=== PATIENT | female | born 1945 | race Caucasian/White ===

== ENCOUNTER 2016-10-23 17:47 | Emergency (ER) | payer MEDICARE, OTHER ==
--- NOTE | ~2016-10-23 | CR72 ---
[facility] A Service of [facility] & [facility] RADIOLOGY TEXT RESULTS PATIENT: HAYLIE SWENSON LOCATION: [facility] : 45 UNIT #: [id number] AGE: [address]: Vikram Vasquez MD SEX: F ORDER DR: [id number] [facility] [address] [place], [place] [address] [id number] E MR#: [id number] Acc #: [id number] NAME: HAYLIE SWENSON. : 1945 SEX: F STUDY DATE/TIME: 10/23/2016 17:31 UNIT: [facility] ROOM: STUDY DESCRIPTION: CR Chest Single View Portable Attending Physician: Vikram Vasquez M.D. Ordering Physician: Vikram Vasquez M.D. Primary Care Physician: Grover Diaz M.D. MEDICAL IMAGING REPORT This report is preliminary unless electronic signature is present EXAM Portable chest HISTORY Chest pain today. FINDINGS Mild hyperinflation of both lungs. Cardiac size and pulmonary vascularity are normal. Stable mild interstitial prominence in both lungs compared to 09/05/2016. No pulmonary consolidation or effusion. Mild left lower thoracic curve. IMPRESSION No acute findings Dictated by... Bijan Banda M.D. THIS IS AN ELECTRONICALLY VERIFIED REPORT Bijan Banda M.D. at 10/24/2016 1:25 PM DFL/rnr TD: 10/24/2016 02:41 JOB #: [id number] MEDICAL IMAGING REPORT Page 1 of 1 COPY
--- NOTE | ~2016-10-23 | EKG ---
PATIENT: HAYLIE SWENSON UNIT #: [id number] Ventricular Rate: 68 BPM Atrial Rate: 68 BPM P-R Interval: 144 ms QRS Duration: 86 ms Q-T Interval: 388 ms QTC Calculation(Bezet): 412 ms P [place]: 72 degrees Calculated R [place]: 3 degrees Calculated T [place]: 70 degrees Diagnosis Line: Normal sinus rhythm Diagnosis Line: Nonspecific ST abnormality Diagnosis Line: Borderline ECG Diagnosis Line: When compared with ECG of 05-SEP-2016 15:39, Diagnosis Line: Premature ventricular complexes are no longer Diagnosis Line: Present Diagnosis Line: Confirmed by RICKY MARTINEZ MD ([id number]) on 10/23/2016 Diagnosis Line: 4:44:07 PM INTERPRETING MD: JUAN ESCAMILLA
[2016-10-23 15:09] LABS: BASOPHIL# 0.2 X10e3 (0-0.3); BASOPHIL% 1.2 % (0-2.5); EOSINOPHIL# 0.2 X10e3 (0-0.7); EOSINOPHIL% 1.7 % (0.0-7.0); HEMATOCRIT 35.1 % (35.0-45.0); HEMOGLOBIN 11.6 gm/dL (12.0-16.0); LYMPHOCYTE# 1.6 X10e3 (1.0-3.5); LYMPHOCYTE% 11.9 % (17.0-45.0); MEAN CELL VOLUME 96.1 FL (83-96); MEAN CORPUSCULAR HEMOGLOBIN 31.8 PG (28-34); MONOCYTE# 1.1 X10e3 (0-1.0); MONOCYTE% 8.4 % (3.0-12.0); NEUTROPHIL# 10.1 X10e3 (1.5-7.1); NEUTROPHIL% 76.8 % (40-75); PLATELET COUNT 241 X10e3 (140-420); RED BLOOD COUNT 3.65 X10e (3.90-5.30); RED CELL DISTRIBUTION WIDTH 14.6 % (11.0-15.5); WHITE BLOOD COUNT 13.2 X10e3 (4.0-10.5)
[2016-10-23 15:10] LABS: DIFF IND NO
[2016-10-23 15:19] LABS: POC - CKMB <1.0 ng/mL (0.0-7.9); POC - TROPONIN <0.05 ng/mL (<=0.05)
[2016-10-23 15:34] LABS: ALBUMIN SERUM 3.7 g/dL (3.5-5.0); BILIRUBIN, DIRECT 0.2 mg/dL (0.0-0.2); BILIRUBIN,INDIRECT 0.7 mg/dL (0.0-0.9); BILIRUBIN,TOTAL 0.9 mg/dL (0.2-2.0); CALCIUM SERUM 8.6 mg/dL (8.4-10.2); GLOM FILT RATE Estimated 56.7 mL/min (>60); POTASSIUM 3.4 mmol/L (3.5-5.1); PROTEIN TOTAL SERUM 6.3 g/dL (6.0-8.3)
[~2016-10-23 17:47] MED LIST: ACETAMINOPHEN PO; ADVAIR 250-501 EAC1 INH; ALBUTEROL 0.5ML INH; ALBUTEROL17 GM INH; ALPRAZOLAM0.5 MG PO; AZITHROMYCIN250 MG PO; BUMEX1 MG PO; BUMEX2 MG PO; COMBIVENT U/D3 M1 INH; COMBIVENT U/D3 M4 INH; COREG3.125 M1 PO; COREG3.125 MG PO; COUMADIN3 MG PO; COUMADIN5 MG PO; CYMBALTA30 M1 PO; DULOXETINE HCL60 MG PO; ENTRESTO 24 MG1 EACH PO; FOLIC ACID PO; HALDOL0.5 MG PO; HYDROCODON-ACE1 EAC9 PO; IRON325 ( 651 PO; K-DUR20 ME1 PO; KEFLEX500 M1 PO; LANOXIN125 MCG PO; LEVAQUIN750 M1 PO; LEXAPRO PO; LEXAPRO20 MG PO; NEURONTIN300 MG PO; NITROGLYGERIN0.4 MG SL; NITROSTAT0.4 MG SL; NYSTATIN5 ML PO; POTASSIUM CHLO20 ME1 PO; PREDNISOLONE5 MG PO; PREDNISONE10 MG/DOSE PO; PRILOSEC PO; PRO-AMATINE5 M1 PO; PROAIR HFA8.5 GM INH; REQUIP1 MG PO; REQUIP2 MG PO; SPIRIVA18 MCG INH; VIT B-12 PO; VITAMIN D400 UNI2 PO; XANAX0.5 M1 PO; XANAX1 MG PO
[2016-10-23 18:16] LABS: POC - CKMB <1.0 ng/mL (0.0-7.9); POC - TROPONIN <0.05 ng/mL (<=0.05)
== END 2016-10-23 18:40 | disposition home or self-care (01) ==
LOC: CED 17:47
PROVIDERS: Emergency Medicine
DX: R07.2 Precordial pain (principal); F17.200 Nicotine dependence, unspecified, uncomplicated; K21.9 Gastro-esophageal reflux disease without esophagitis; J45.909 Unspecified asthma, uncomplicated; J44.9 Chronic obstructive pulmonary disease, unspecified; F41.9 Anxiety disorder, unspecified; Z88.0 Allergy status to penicillin; Z88.2 Allergy status to sulfonamides; Z88.5 Allergy status to narcotic agent
CPT/HCPCS: 36415; 71010; 80048; 80076; 82553; 84484; 85025; 93005; 99284

== ENCOUNTER → 2016-11-17 | Outpatient (CLI) | payer MEDICARE, OTHER ==
--- NOTE | ~2016-11-17 | CT57 ---
[facility] A Service of [facility] & [facility] RADIOLOGY TEXT RESULTS PATIENT: HAYLIE SWENSON LOCATION: [facility] : 45 UNIT #: [id number] AGE: [address]: Eladio Denise MD SEX: F ORDER DR: [id number] [facility] [place] [facility]. [place], [place] [address] [id number] O MR#: [id number] Acc #: [id number] NAME: HAYLIE SWENSON : 1945 SEX: F STUDY DATE/TIME: 11/18/2016 UNIT: [facility] ROOM: STUDY DESCRIPTION: CT Chest Wo Cont Attending Physician: Eladio Denise M.D. Referring Physician: Eladio Denise M.D. Ordering Physician: Eladio Denise M.D. Primary Care Physician: Grover Diaz M.D. MEDICAL IMAGING REPORT This report is preliminary unless electronic signature is present EXAM CT chest without contrast 11/17/2016 1334 hours. HISTORY 71-year-old woman with history of cardiac disease complaining of persistent wheezing and cough for 10 years. History of COPD. COMPARISON Chest CT 08/31/2016 TECHNIQUE Helical noncontrasted images were obtained from the thoracic inlet through the adrenal glands. Sagittal and coronal reconstructions were performed. Total exam DLP 495 mGy-cm. This CT exam was performed with one or more of the following radiation dose reduction techniques: automatic exposure control, adjustment of mA and/or kV according to patient size, and iterative reconstruction. FINDINGS Images through the thoracic inlet demonstrate no thyroid mass or enlargement. There is no supraclavicular adenopathy. Images through the chest demonstrate normal caliber aorta with mild atherosclerotic change. Cardiac chambers and pericardium are normal. The esophagus is remarkable for a moderate sized hiatal hernia which is unchanged. The lungs demonstrate underlying emphysematous change with minimal apical scarring bilaterally. Previous patchy densities in the right middle lobe and right lower lobe have resolved. There is linear density at the lateral right lung base greater than left lung base, likely scar. There is no suspicious mass or nodule. [facility] A Service of [facility] & [facility] RADIOLOGY TEXT RESULTS PATIENT: HAYLIE SWENSON [facility] UNIT #: [id number] AGE: [address]: Eladio Denise MD SEX: F ORDER DR: Limited views through the upper abdomen demonstrate cholecystectomy change. IMPRESSION 1. There is underlying emphysematous change with interval clearing of the parenchymal changes in the right middle lobe and right lower lobe present on 08/31/2016. These likely represented infectious changes. There is mild linear scarring at the apices and at the lateral right lung base. 2. Small to moderate hiatal hernia. 3. Cardiac size is normal. There is atherosclerotic change in the aorta with no aneurysm seen. Dictated by... Elke Ruby M.D. THIS IS AN ELECTRONICALLY VERIFIED REPORT Elke Ruby M.D. at 11/18/2016 5:51 PM Rickie TD: 11/18/2016 14:36 JOB #: [id number] MEDICAL IMAGING REPORT Page 1 of 1 COPY
== END | disposition home or self-care (01) ==
LOC: CCAT 13:04
DX: R05 Cough (principal); R06.2 Wheezing; J98.4 Other disorders of lung; I70.0 Atherosclerosis of aorta
CPT/HCPCS: 71250

== ENCOUNTER 2016-12-04 18:22 | Emergency (ER) | payer MEDICARE, OTHER ==
--- NOTE | ~2016-12-04 | EKG ---
PATIENT: HAYLIE SWENSON UNIT #: [id number] Ventricular Rate: 80 BPM Atrial Rate: 80 BPM P-R Interval: 162 ms QRS Duration: 80 ms Q-T Interval: 348 ms QTC Calculation(Bezet): 401 ms P [place]: 58 degrees Calculated R [place]: -30 degrees Calculated T [place]: 73 degrees Diagnosis Line: Sinus rhythm with occasional Premature ventricular Diagnosis Line: complexes Diagnosis Line: Left axis deviation Diagnosis Line: Nonspecific ST and T wave abnormality Diagnosis Line: Abnormal ECG Diagnosis Line: No previous ECGs available Diagnosis Line: Confirmed by JEREL BARBER MD ([id number]) on Diagnosis Line: 12/07/2016 8:33:38 AM INTERPRETING MD: ELISABETH ESCAMILLA
--- NOTE | ~2016-12-04 | CR72 ---
[facility] A Service of [facility] & [facility] RADIOLOGY TEXT RESULTS PATIENT: HAYLIE SWENSON LOCATION: [facility] : 45 UNIT #: [id number] AGE: [address]: Richie Cardona MD SEX: F ORDER DR: [id number] [facility] [address] [facility] [place], [place] [address] [id number] E MR#: [id number] Acc #: [id number] NAME: HAYLIE SWENSON : 1945 SEX: F STUDY DATE/TIME: 12/04/2016 17:51 UNIT: [facility] ROOM: STUDY DESCRIPTION: CR Chest Single View Portable Attending Physician: Richie Cardona M.D. Ordering Physician: Richie Cardona M.D. Primary Care Physician: Grover Diaz M.D. MEDICAL IMAGING REPORT This report is preliminary unless electronic signature is present EXAM Portable chest INDICATIONS Shortness of breath today COMPARISON 10/23/2016 FINDINGS Stable scarring in the lung apices. No acute-appearing infiltrate. Heart size normal. Atherosclerotic calcification of the aorta. IMPRESSION No active disease Dictated by... Ricky Ta M.D. THIS IS AN ELECTRONICALLY VERIFIED REPORT Ricky Ta M.D. at 12/09/2016 7:28 AM MARCO/adria TD: 12/04/2016 23:28 JOB #: [id number] MEDICAL IMAGING REPORT Page 1 of 1 COPY
[2016-12-04 18:44] LABS: BUN/CREATININE RATIO 11.42; CALCIUM SERUM 8.7 mg/dL (8.4-10.2); CREATININE SERUM 0.7 mg/dL (0.6-1.4); GLOM FILT RATE Estimated 87.2 mL/min (>60); POTASSIUM 3.4 mmol/L (3.5-5.1)
[2016-12-04 19:31] LABS: BASOPHIL% 0.8 % (0-2.5); DIFF IND NO; EOSINOPHIL# 0.1 X10e3 (0-0.7); EOSINOPHIL% 1.8 % (0.0-7.0); HEMATOCRIT 34.6 % (35.0-45.0); HEMOGLOBIN 11.5 gm/dL (12.0-16.0); LYMPHOCYTE# 0.8 X10e3 (1.0-3.5); LYMPHOCYTE% 13.4 % (17.0-45.0); MEAN CELL VOLUME 93.8 FL (83-96); MEAN CORPUSCULAR HEMOGLOBIN 31.3 PG (28-34); MEAN CORPUSCULAR HGB CONC 33.3 g/dL (30-36); MONOCYTE# 0.9 X10e3 (0-1.0); MONOCYTE% 14.9 % (3.0-12.0); NEUTROPHIL# 4.1 X10e3 (1.5-7.1); NEUTROPHIL% 69.1 % (40-75); PLATELET COUNT 138 X10e3 (140-420); RED BLOOD COUNT 3.69 X10e (3.90-5.30); RED CELL DISTRIBUTION WIDTH 13.1 % (11.0-15.5); WHITE BLOOD COUNT 5.9 X10e3 (4.0-10.5)
== END 2016-12-04 20:20 | disposition home or self-care (01) ==
LOC: CED 18:22
DX: J44.1 Chronic obstructive pulmonary disease with (acute) exacerbation (principal); I50.9 Heart failure, unspecified; F17.200 Nicotine dependence, unspecified, uncomplicated; Z88.0 Allergy status to penicillin; Z88.2 Allergy status to sulfonamides; Z88.5 Allergy status to narcotic agent; Z79.899 Other long term (current) drug therapy
CPT/HCPCS: 71010; 80048; 83880; 85025; 93005; 99284; J1940

== ENCOUNTER → 2017-01-01 | Outpatient (CLI) | payer MEDICARE, OTHER ==
[2017-01-01 12:09] LABS: BASOPHIL# 0.1 X10e3 (0-0.3); BASOPHIL% 0.9 % (0-2.5); EOSINOPHIL# 0.3 X10e3 (0-0.7); EOSINOPHIL% 3.1 % (0.0-7.0); HEMATOCRIT 36.4 % (35.0-45.0); HEMOGLOBIN 12.1 gm/dL (12.0-16.0); LYMPHOCYTE# 1.3 X10e3 (1.0-3.5); LYMPHOCYTE% 13.9 % (17.0-45.0); MEAN CELL VOLUME 94.6 FL (83-96); MEAN CORPUSCULAR HEMOGLOBIN 31.6 PG (28-34); MEAN CORPUSCULAR HGB CONC 33.4 g/dL (30-36); MEAN PLATELET VOLUME 7.8 FL (6.5-11.5); MONOCYTE# 1.2 X10e3 (0-1.0); NEUTROPHIL# 6.6 X10e3 (1.5-7.1); NEUTROPHIL% 69.1 % (40-75); PLATELET COUNT 264 X10e3 (140-420); RED BLOOD COUNT 3.84 X10e (3.90-5.30); RED CELL DISTRIBUTION WIDTH 13.1 % (11.0-15.5); WHITE BLOOD COUNT 9.5 X10e3 (4.0-10.5)
[2017-01-01 12:10] LABS: DIFF IND NO
[2017-01-01 12:45] LABS: GLOM FILT RATE Estimated 56.7 mL/min (>60); MAGNESIUM 1.5 mg/dL (1.6-3.0)
[2017-01-01 14:47] LABS: POTASSIUM 2.7 mmol/L (3.5-5.1)
== END | disposition home or self-care (01) ==
LOC: CLAB 11:28
DX: E05.90 Thyrotoxicosis, unspecified without thyrotoxic crisis or storm (principal); R53.83 Other fatigue
CPT/HCPCS: 36415; 80048; 83735; 84439; 84443; 85025

== ENCOUNTER → 2017-01-05 | Outpatient (CLI) | payer MEDICARE, OTHER ==
--- NOTE | ~2017-01-05 | US5 ---
[facility] A Service of [facility] RADIOLOGY TEXT RESULTS PATIENT: HAYLIE SWENSON LOCATION: [facility] : 45 UNIT #: [id number] AGE: [address]: Jose Francisco Vázquez MD SEX: F ORDER DR: [id number] [facility]. [place], [place] [address] [id number] O MR#: [id number] Acc #: [id number] NAME: HAYLIE SWENSON : 1945 SEX: F STUDY DATE/TIME: 01/05/2017 10:52 UNIT: [facility] ROOM: STUDY DESCRIPTION: US Abdominal Complete Attending Physician: Jose Francisco Vázquez M.D. Referring Physician: Jose Francisco Vázquez M.D. Ordering Physician: Jose Francisco Vázquez M.D. Primary Care Physician: Grover Diaz M.D. MEDICAL IMAGING REPORT This report is preliminary unless electronic signature is present EXAM Abdominal ultrasound complete 01/05/2017 HISTORY Diffuse abdominal pain for 3 months. FINDINGS The liver is homogeneous in echotexture and demonstrates no cystic or solid mass lesions. The intra- and extrahepatic bile ducts are not dilated. The gallbladder is not visualized. It is presumed surgically absent. Correlation with patient history is suggested. The common duct measures 4 mm. The pancreas and spleen are normal. The spleen measures 10 cm in greatest diameter. The visualized portions of the abdominal aorta and inferior vena cava are within normal limits. The kidneys are normal bilaterally. IMPRESSION The gallbladder is not visualized. It is presumed surgically absent. Correlation with patient history is suggested. Otherwise, negative abdominal ultrasound. Dictated by... Andrews Johnson M.D. THIS IS AN ELECTRONICALLY VERIFIED REPORT Andrews Johnson M.D. at 01/06/2017 8:29 AM ERNA/rico TD: 01/05/2017 17:05 JOB #: [id number] MEDICAL IMAGING REPORT [facility] A Service of [facility] RADIOLOGY TEXT RESULTS PATIENT: HAYLIE SWENSON LOCATION: [facility] #: [id number] : 45 UNIT #: [id number] AGE: [address]: Jose Francisco Vázquez MD SEX: F ORDER DR: Page 1 of 1 COPY
[2017-01-05 11:04] LABS: BUN/CREATININE RATIO 11.25; CREATININE SERUM 0.8 mg/dL (0.6-1.4); GLOM FILT RATE Estimated 74.2 mL/min (>60); MAGNESIUM 1.7 mg/dL (1.6-3.0); POTASSIUM 4.4 mmol/L (3.5-5.1)
== END | disposition home or self-care (01) ==
LOC: CGUS 10:19
DX: R10.84 Generalized abdominal pain (principal); I50.9 Heart failure, unspecified
CPT/HCPCS: 36415; 76700; 80048; 83735